=== PATIENT | female | born 1975 | race American Indian/Alaskan Native ===

== ENCOUNTER 2017-05-27 00:24 | Emergency (ER) | payer MEDICAID, OTHER ==
[2017-05-27 02:10] VITALS: BP 155/98
[2017-05-27] MEDS ORDERED: FLEXERIL PO ONE (04:52)
[2017-05-27] MEDS ORDERED: NORCO 7.5/325 PO ONE (04:52)
[2017-05-27] MEDS ORDERED: TORADOL IM ONE (04:52)
--- NOTE | 2017-05-27 05:39 | Emergency Department Report ---
ED Back Pain/Injury HPI - General Chief Complaint: Back Pain/Injury Stated Complaint: BACK PAIN Source: patient Mode of arrival: Ambulatory Limitations: No Limitations - History of Present Illness Initial Comments: 42 year old female presents to ED with lower back pain x2-3 weeks. patient states she has history of breast cancer. patient is ambulatory with normal gait. patient denies dysuria, hematuria, urinary incontince, , saddle anesthesia. patient is stable, neurologically intact and in no acute distress. MD Complaint: back pain -: Gradual, week(s) (2) Similar Symptoms Previously: No Radiation: none Severity: moderate Quality: sharp Consistency: constant Improves With: immobilization, medication Worsens With: movement Associated Symptoms: denies: confusion, weakness, chest pain, numbness, difficulty walking, cough, difficulty urinating, diaphoresis, incontinence, fever/chills, constipation, headaches, abdominal pain, loss of appetite, malaise , nausea/vomiting, rash, seizure, shortness of breath, syncope - Related Data Home Medications Medication Instructions Recorded Confirmed Last Taken Ergocalciferol(Vitamin D2)(Nf) 400 unit PO QWEEK 12/04/16 12/04/16 Unknown [Vitamin D (Nf)] Gabapentin [Gabapentin] 600 mg PO BID 12/04/16 12/04/16 Unknown NIFEdipine XL [Procardia Xl] 30 mg PO QDAY 12/04/16 12/04/16 Unknown Previous Rx's Medication Instructions Recorded Last Taken Type Meloxicam [Mobic] 7.5 mg PO QDAY #5 tablet 05/27/17 Unknown Rx methOCARBAMOL [Robaxin TAB] 500 mg PO TID #15 tab 05/27/17 Unknown Rx Allergies Allergy/AdvReac Type Severity Reaction Status Date / Time carboplatin Allergy Shortness Verified 12/04/16 11:19 of Breath ED Review of Systems ROS: Stated complaint: BACK PAIN Other details as noted in HPI Constitutional: denies: chills, fever Eyes: denies: eye pain, eye discharge, vision change ENT: denies: ear pain, throat pain Respiratory: denies: cough, shortness of breath, wheezing Cardiovascular: denies: chest pain, palpitations Endocrine: no symptoms reported Gastrointestinal: denies: abdominal pain, nausea, diarrhea Genitourinary: denies: urgency, dysuria, discharge Musculoskeletal: back pain. denies: joint swelling, arthralgia Skin: denies: rash, lesions Neurological: denies: headache, weakness, paresthesias Psychiatric: denies: anxiety, depression Hematological/Lymphatic: denies: easy bleeding, easy bruising ED Past Medical Hx - Past Medical History Hx Hypertension: Yes (since 2014) Hx GERD: Yes Hx of Cancer: Yes (BREAST) Hx Headaches / Migraines: Yes Hx Seizures: No Hx HIV: No - Surgical History Hx Breast Surgery: Yes (RIGHT BREAST BX 06-25-) Additional Surgical History: HERNIA REPAIR, RIGHT MASTECTOMY. Port to left mid chest - Social History Smoking Status: Never Smoker Substance Use Type: None - Medications Home Medications: Home Medications Medication Instructions Recorded Confirmed Last Taken Type Ergocalciferol(Vitamin D2)(Nf) 400 unit PO QWEEK 12/04/16 12/04/16 Unknown History [Vitamin D (Nf)] Gabapentin [Gabapentin] 600 mg PO BID 12/04/16 12/04/16 Unknown History NIFEdipine XL [Procardia Xl] 30 mg PO QDAY 12/04/16 12/04/16 Unknown History Meloxicam [Mobic] 7.5 mg PO QDAY #5 tablet 05/27/17 Unknown Rx methOCARBAMOL [Robaxin TAB] 500 mg PO TID #15 tab 05/27/17 Unknown Rx ED Physical Exam - General Limitations: No Limitations General appearance: alert, in no apparent distress - Head Head exam: Present: atraumatic, normocephalic - Eye Eye exam: Present: normal appearance - ENT ENT exam: Present: mucous membranes moist - Neck Neck exam: Present: normal inspection - Respiratory Respiratory exam: Present: normal lung sounds bilaterally. Absent: respiratory distress, wheezes, rales, rhonchi - Cardiovascular Cardiovascular Exam: Present: regular rate, normal rhythm. Absent: systolic murmur, diastolic murmur, rubs, gallop - GI/Abdominal GI/Abdominal exam: Present: soft, normal bowel sounds. Absent: distended, tenderness, guarding, rebound - Extremities Exam Extremities exam: Present: normal inspection, full ROM. Absent: tenderness - Back Exam Back exam: Present: normal inspection, full ROM, tenderness (moderate vertebral tenderness to palpation) - Neurological Exam Neurological exam: Present: alert, oriented X3, normal gait - Psychiatric Psychiatric exam: Present: normal affect, normal mood - Skin Skin exam: Present: warm, dry, intact, normal color. Absent: rash ED Course Vital Signs 05/27/17 05/27/17 05/27/17 00:26 03:56 05:51 Temperature 99.0 F 99 F Pulse Rate 99 H 99 H Respiratory 16 18 Rate Blood Pressure 155/98 Blood Pressure 155/98 [Left] O2 Sat by Pulse 100 100 Oximetry ED Medical Decision Making - Lab Data Labs 05/27/17 04:40 Urine Color Yellow Urine Turbidity Clear Urine pH 5.0 Ur Specific [place] 1.021 Urine Protein <15 mg/dl Urine Glucose (UA) Neg Urine Ketones Neg Urine Blood Neg Urine Nitrite Neg Urine Bilirubin Neg Urine Urobilinogen < 2.0 Ur Leukocyte Esterase Neg Urine WBC (Auto) 1.0 Urine RBC (Auto) 1.0 U Epithel Cells (Auto) 1.0 Hyaline Casts 1 Urine Mucus 1+ Urine HCG, Qual Negative - Radiology Data Radiology results: report reviewed CT lumbar Normal CT lumbar spine - Medical Decision Making 42 year old female presents to ED with lower back pain x2-3 weeks. patient denies injury. patient had moderate amount of tenderness to palpation of lower midline back prior to pain medication administered during ED visit. patient has decreased pain after medication and upon discharge. patient states she has history of breast cancer. patient is stable, neurologically intact and in no acute distress. patient is ambulatory with normal gait. patient is now resting comfortably in stretcher. Critical care attestation.: If time is entered above; I have spent that time in minutes in the direct care of this critically ill patient, excluding procedure time. ED Disposition Clinical Impression: Lower back pain Qualifiers: Chronicity: acute Back pain laterality: midline Sciatica presence: without sciatica Qualified Code(s): M54.5 - Low back pain Disposition: DC-01 TO HOME OR SELFCARE Is pt being admited?: No Does the pt Need Aspirin: No Condition: Stable Instructions: Acute Low Back Pain (ED) Prescriptions: Meloxicam [Mobic] 7.5 mg PO QDAY #5 tablet methOCARBAMOL [Robaxin TAB] 500 mg PO TID #15 tab Referrals: PRIMARY CARE, [Primary Care Provider] - 2-3 Days
[2017-05-27] MEDS ORDERED: TORADOL ONE (05:42)
[2017-05-27 05:54] LABS: Bilirubin,Urine NEG (Negative); Blood,Urine NEG (Negative); Ketones,Urine NEG (Negative); Leukocyte Esterase,Urine NEG (Negative); Mucus,Urine 1+ /HPF; Nitrite,Urine NEG (Negative); Protein,Urine <15 mg/dL mg/dL (Negative); Urobilinogen,Urine < 2.0 mg/dL (<2.0)
--- NOTE | 2017-05-27 06:59 | Cat Scan Report ---
FINAL REPORT PROCEDURE: CT LUMBAR SPINE WO CON TECHNIQUE: Computerized axial tomography of the lumbar spine was performed from T12 to the sacrum without contrast material. HISTORY: lower back pain, hx of cancer COMPARISON: No prior studies are available for comparison. FINDINGS: L1-2: No significant abnormality. L2-3: No significant abnormality. L3-4: No significant abnormality. L4-5: No significant abnormality. L5-S1: No significant abnormality. Other: The alignment is normal. The heights of the vertebral bodies and the disc spaces are maintained. No acute fracture or dislocation of the lumbar spine. The spinal canal is adequate at all levels.. IMPRESSION: Normal CT lumbar spine.
== END 2017-05-27 07:17 | disposition home or self-care (01) ==
LOC: ED 00:24
DX: M54.5 Low back pain (principal); I10 Essential (primary) hypertension; K21.9 Gastro-esophageal reflux disease without esophagitis; Z85.3 Personal history of malignant neoplasm of breast
CPT/HCPCS: 72131; 81001; 81025; 96372; 99284; J1885

== ENCOUNTER 2017-06-01 07:16 | Outpatient (CLI) | payer MEDICAID ==
--- NOTE | 2017-06-01 10:38 | Cat Scan Report ---
CT scan of head without and with IV contrast: History: Malignant neoplasm. Findings: Ventricles are normal in size and midline in location. No evidence of acute ischemia, hemorrhage or mass. No extra-axial fluid collection. The vessels of the [place] appear unremarkable. Normal brainstem and cerebellum. Normal sinuses and mastoid air cells. Impression: No acute intracranial abnormality.
== END 2017-06-01 07:17 | disposition home or self-care (01) ==
LOC: CT 07:16
PROVIDERS: ATTEND Internal Medicine Hematology & Oncology
DX: C50.411 Malignant neoplasm of upper-outer quadrant of right female breast (principal)
CPT/HCPCS: 70470; Q9967

== ENCOUNTER 2017-12-15 00:28 | Emergency (ER) | payer MEDICAID ==
--- NOTE | 2017-12-15 05:12 | Emergency Department Report ---
ED Back Pain/Injury HPI - General Chief Complaint: Back Pain/Injury Stated Complaint: LOWER BACK PAIN Time Seen by Provider: 12/15/17 05:11 Source: patient Limitations: No Limitations - History of Present Illness Initial Comments: 42-year-old -[place] female comes in complaining of lower back pain for 3 days. Patient reports she's been taking ibuprofen but does not help. Patient reports she had a similar issue 6 months ago and was given a Toradol injection and reported that had helped a lot. Patient has a past medical history of breast cancer, hypertension, lymphoma of the right arm. Patient is currently taken Procardia 30 mg and gabapentin 600 mg. Patient denies any recent trauma she says sitting makes her pain worse and lying on her left side improves pain. Patient reports she has left leg cramps that traveled up her back. MD Complaint: back pain -: month(s) (6) Similar Symptoms Previously: Yes Severity scale (0 -10): 8 Quality: sharp Consistency: constant Improves With: supine Worsens With: sitting upright Associated Symptoms: denies: numbness, difficulty urinating, incontinence, fever /chills - Related Data Home Medications Medication Instructions Recorded Confirmed Last Taken Ergocalciferol(Vitamin D2)(Nf) 400 unit PO QWEEK 12/04/16 12/04/16 Unknown [Vitamin D (Nf)] Gabapentin 600 mg PO BID 12/04/16 12/04/16 Unknown NIFEdipine XL [Procardia Xl] 30 mg PO QDAY 12/04/16 12/04/16 Unknown Previous Rx's Medication Instructions Recorded Last Taken Type Meloxicam [Mobic] 7.5 mg PO QDAY #5 tablet 05/27/17 Unknown Rx methOCARBAMOL [Robaxin TAB] 500 mg PO TID #15 tab 05/27/17 Unknown Rx Naproxen [EC-Naprosyn] 500 mg PO BID #20 tablet. 12/15/17 Unknown Rx predniSONE [Deltasone] 20 mg PO QDAY #5 tab 12/15/17 Unknown Rx Allergies Allergy/AdvReac Type Severity Reaction Status Date / Time carboplatin Allergy Shortness Verified 12/04/16 11:19 of Breath ED Review of Systems ROS: Stated complaint: LOWER BACK PAIN Other details as noted in HPI Constitutional: denies: chills, fever Eyes: denies: eye pain, eye discharge, vision change ENT: denies: ear pain, throat pain Respiratory: denies: cough, shortness of breath, wheezing Cardiovascular: denies: chest pain, palpitations Endocrine: no symptoms reported Gastrointestinal: denies: abdominal pain, nausea, diarrhea Genitourinary: denies: urgency, dysuria, discharge Musculoskeletal: back pain, other (right leg cramp that radiates up her back) Skin: denies: rash, lesions Neurological: denies: headache, weakness, paresthesias Psychiatric: denies: anxiety, depression Hematological/Lymphatic: denies: easy bleeding, easy bruising ED Past Medical Hx - Past Medical History Previous Medical History?: Yes Hx Hypertension: Yes (since 2014) Hx GERD: Yes Hx Headaches / Migraines: Yes Hx Seizures: No Hx HIV: No Additional medical history: back pain - Surgical History Past Surgical History?: Yes Hx Breast Surgery: Yes (RIGHT BREAST BX 06-25-) Additional Surgical History: HERNIA REPAIR, RIGHT MASTECTOMY. Port to left mid chest - Social History Smoking Status: Never Smoker Substance Use Type: None - Medications Home Medications: Home Medications Medication Instructions Recorded Confirmed Last Taken Type Ergocalciferol(Vitamin D2)(Nf) 400 unit PO QWEEK 12/04/16 12/04/16 Unknown History [Vitamin D (Nf)] Gabapentin 600 mg PO BID 12/04/16 12/04/16 Unknown History NIFEdipine XL [Procardia Xl] 30 mg PO QDAY 12/04/16 12/04/16 Unknown History Meloxicam [Mobic] 7.5 mg PO QDAY #5 tablet 05/27/17 Unknown Rx methOCARBAMOL [Robaxin TAB] 500 mg PO TID #15 tab 05/27/17 Unknown Rx Naproxen [EC-Naprosyn] 500 mg PO BID #20 tablet. 12/15/17 Unknown Rx predniSONE [Deltasone] 20 mg PO QDAY #5 tab 12/15/17 Unknown Rx ED Physical Exam - General Limitations: No Limitations General appearance: alert, in no apparent distress - Head Head exam: Present: atraumatic, normocephalic - Eye Eye exam: Present: normal appearance - ENT ENT exam: Present: mucous membranes moist - Respiratory Respiratory exam: Present: normal lung sounds bilaterally. Absent: respiratory distress - Cardiovascular Cardiovascular Exam: Present: regular rate, normal rhythm. Absent: systolic murmur, diastolic murmur, rubs, gallop - GI/Abdominal GI/Abdominal exam: Present: soft, normal bowel sounds - Extremities Exam Extremities exam: Present: normal inspection, full ROM. Absent: tenderness - Back Exam Back exam: Present: normal inspection, full ROM, paraspinal tenderness (lumbar sacral) - Neurological Exam Neurological exam: Present: alert, oriented X3 - Psychiatric Psychiatric exam: Present: normal affect, normal mood - Skin Skin exam: Present: warm, dry, intact, normal color. Absent: rash ED Course Vital Signs 12/15/17 12/15/17 12/15/17 01:30 05:24 05:25 Temperature 98.6 F Pulse Rate 103 H Respiratory 18 18 18 Rate Blood Pressure 141/100 Blood Pressure [Left] O2 Sat by Pulse 97 Oximetry 12/15/17 05:48 Temperature Pulse Rate 97 H Respiratory 18 Rate Blood Pressure Blood Pressure 139/96 [Left] O2 Sat by Pulse 97 Oximetry ED Medical Decision Making - Medical Decision Making Patient has been evaluated by this provider in fast track. I discussed the patient we will give her Toradol injection and then [place] for pain. Discussed the patient I will discharge her on a few steroids and ibuprofen. Patient verbalized understanding. Critical care attestation.: If time is entered above; I have spent that time in minutes in the direct care of this critically ill patient, excluding procedure time. ED Disposition Clinical Impression: Chronic back pain greater than 3 months duration Disposition: DC-01 TO HOME OR SELFCARE Is pt being admited?: No Does the pt Need Aspirin: No Condition: Stable Instructions: Chronic Back Pain (ED) Additional Instructions: Please take medication as prescribed. Please follow-up with your primary care provider if symptoms persist or gets worse. Prescriptions: Naproxen [EC-Naprosyn] 500 mg PO BID #20 tablet. predniSONE [Deltasone] 20 mg PO QDAY #5 tab Referrals: TONY SALCIDO MD [Primary Care Provider] - 3-5 Days your,provider [Other] - 3-5 Days
[2017-12-15] MEDS ORDERED: NORCO 7.5/325 PO ONE (05:21)
[2017-12-15] MEDS ORDERED: TORADOL IM ONE (05:21)
[2017-12-15 05:49] VITALS: BP 139/96
== END 2017-12-15 05:49 | disposition home or self-care (01) ==
LOC: ED 00:28
DX: M54.5 Low back pain (principal); G89.29 Other chronic pain; I10 Essential (primary) hypertension; K21.9 Gastro-esophageal reflux disease without esophagitis; G43.909 Migraine, unspecified, not intractable, without status migrainosus; Z90.11 Acquired absence of right breast and nipple; Z88.8 Allergy status to other drugs, medicaments and biological substances
CPT/HCPCS: 96372; 99282; J1885

== ENCOUNTER 2018-04-30 11:51 | Outpatient (CLI) | payer MEDICAID | END 2018-04-30 11:52 | disposition home or self-care (01) | LOC: LAB 11:51 | PROVIDERS: ATTEND Physician Assistant | DX: N64.52 Nipple discharge (principal); E11.9 Type 2 diabetes mellitus without complications; Z90.12 Acquired absence of left breast and nipple | CPT/HCPCS: 36415; 84146 ==

== ENCOUNTER 2018-05-07 13:48 | Outpatient (CLI) | payer MEDICAID ==
--- NOTE | 2018-05-07 15:10 | Ultrasound Report ---
LEFT DIGITAL DIAGNOSTIC MAMMOGRAM with CAD and LEFT BREAST ULTRASOUND: 05/07/18 13:48:00 CLINICAL: Milky right nipple discharge. COMPARISON:09/20/17 FINDINGS: There are scattered fibroglandular densities.No mass, architectural distortion or suspicious calcifications. A few small axillary lymph nodes. Ultrasound of the left breast (including all four quadrants and the retroareolar area) was performed and demonstrated mild retroareolar ductal ectasia with no intraductal masses. No mass, architectural distortion or suspicious calcifications. A few small left axillary lymph nodes of benign morphology. IMPRESSION: Mild benign duct ectasia no suspicious finding. BI-RADS CATEGORY: 2 - - Benign RECOMMENDATION: Routine mammographic screening. ACR BI-RADS MAMMOGRAPHIC CODES: 0 = Needs additional imaging evaluation; 1 = Negative; 2 = Benign; 3 = Probably benign; 4 = Suspicious; 5 = Malignant; 6 = Known biopsy-proven malignancy COMMENT: 1. Dense breast tissue, i.e., adenosis, fibrocystic changes, etc., may obscure an underlying neoplasm. 2. Approximately 10% of cancers are not detected with mammography. 3. A negative mammography report should not delay biopsy if a clinically suspicious mass is present. COMMENT: Patient follow-up letters are generated by our [employer] application.
== END 2018-05-07 13:49 | disposition home or self-care (01) ==
LOC: SPVWC 13:48
PROVIDERS: ATTEND Surgery
DX: N60.41 Mammary duct ectasia of right breast (principal); I10 Essential (primary) hypertension; K21.9 Gastro-esophageal reflux disease without esophagitis; E11.9 Type 2 diabetes mellitus without complications; Z90.12 Acquired absence of left breast and nipple

== ENCOUNTER 2018-08-20 06:09 | Day surgery (SDC) | payer MEDICAID ==
[~2018-08-20 06:09] MED LIST: ANCEF/STERILE WATER 2 GM/20 ML IV NR
[2018-08-20] MEDS ORDERED: SUBLIMAZE ONE (07:17)
[2018-08-20] MEDS ORDERED: DIPRIVAN 10 MG/ML IV ONE (07:18)
[2018-08-20] MEDS ORDERED: MARCAINE-EPI 0.25%-1:200,000 INFILTRATI ONE (07:19)
[2018-08-20] MEDS ORDERED: NACL 0.9% 1000 ML 1,000 ML ONE ×3 (07:20→09:09)
[2018-08-20] MEDS ORDERED: ADRENALIN ONE (07:20)
[2018-08-20] MEDS ORDERED: QUELICIN ONE (07:23)
[2018-08-20] MEDS ORDERED: XYLOCAINE MPF 2% ONE (07:23)
[2018-08-20] MEDS ORDERED: XYLOCAINE 0.5%/ EPI 1:200,000 INFILTRATI ONE (07:28)
[2018-08-20] MEDS ORDERED: VERSED ONE (07:29)
[2018-08-20] MEDS ORDERED: LACTATED RINGERS 1,000 ML ONE (07:29)
[2018-08-20] MEDS ORDERED: XYLOCAINE 1% 20 mL ONE ×2 (07:29→08:10)
[2018-08-20] MEDS ORDERED: NEURONTIN ONE (07:29)
[2018-08-20] MEDS ORDERED: BACITRACIN ONE ×2 (07:33→09:10)
[2018-08-20] MEDS ORDERED: DILAUDID IV PRN (07:54)
--- NOTE | 2018-08-20 07:54 | Anesthesia Day of Surgery ---
Anesthesia Day of Surgery - Day of Surgery Patient Examined: Yes Patient H&P Reviewed: Yes Patient is NPO: Yes
--- NOTE | 2018-08-20 07:54 | Anesthesia Consultation ---
Anesthesia Consult and Med Hx Date of service: 08/20/18 - Airway Anesthetic Teeth Evaluation: Partials ROM Head & Neck: Adequate Mental/Hyoid Distance: Adequate Mallampati Class: Class III Intubation Access Assessment: Possibly Difficult - Pulmonary Exam CTA: Yes - Cardiac Exam Cardiac Exam: RRR - Pre-Operative Health Status ASA Pre-Surgery Classification: ASA2 Proposed Anesthetic Plan: General - Pulmonary Hx Smoking: No Hx Asthma: No Hx Respiratory Symptoms: No Hx Sleep Apnea: No (JEANA PRE SCREEN LOW RISK.) - Cardiovascular System Hx Hypertension: Yes (2014- NO MEDS AT PRESENT) Hx Heart Attack/AMI: No - Central Nervous System Hx Neuromuscular Disorder: No Hx Seizures: No CVA: No Hx Back Pain: Yes (WITH PAIN AND WEAKNESS RT ARM) Hx Psychiatric Problems: No - Gastrointestinal Hx Gastroesophageal Reflux Disease: Yes (well controlled) - Endocrine Hx Renal Disease: No Hx Liver Disease: No Hx Insulin Dependent Diabetes: No Hx Non-Insulin Dependent Diabetes: No Hx Thyroid Disease: No - Hematic Hx Anemia: No - Other Systems Hx Alcohol Use: No Hx Substance Use: No Hx Cancer: Yes Hx Obesity: Yes - Additional Comments Anesthesia Medical History Comments: No hx anesthetic complications.
[2018-08-20] MEDS ORDERED: LACTATED RINGERS 1,000 ML IV SCH (08:00)
[2018-08-20] MEDS ORDERED: DILAUDID ONE (08:39)
[2018-08-20] MEDS ORDERED: DECADRON ONE (08:39)
[2018-08-20] MEDS ORDERED: ZOFRAN ONE (08:40)
[2018-08-20] MEDS ORDERED: NACL P/F VIAL (10 ML) 20 ML ONE (09:10)
--- NOTE | 2018-08-20 11:54 | Operative Report ---
Operative Report Operative Report: Operative Report Operative Report: Preoperative Diagnosis: Acquired absence of the right breast; marked asymmetry s/p right breast reconstruction with Latissimus dorsi flap and tissue voice instructor placement. Post Operative Diagnosis: Same Procedure: Right breast tissue voice instructor/implant exchange; Left breast reduction Surgeon: Dr. Matilde Torres Life Sciences Manager: Gerri Escobedo Specimens: Left breast tissue, excised, 440 grams EBL: 50cc Procedure: After review of pertinent history and physical exam findings the patient was brought into the operating room and placed supine on the OR table. After induction of adequate general endotracheal anesthesia the patient's chest was prepped and draped in the usual sterile surgical fashion. To begin, we performed the tissue voice instructor removal on the right breast. A 750cc [place] tissue voice instructor, intact, was removed from the right breast pocket. Extensive capsulotomy was performed in the well-formed capsule to accomodate the permanent implant. Once hemostasis was achieved, the pocket was irrigated thoroughly with triple antibiotic solution. Using a Barragan funnel, an 800 cc [place] silicone implant (SN [id number]) implant was introduced into the pocket without difficulty. We then began our 3-layered closure using 2-0 and 3-0 Monocryl, followed by Skin Affix glue. Turning our attention to the left breast, the sepulveda on the left breast were refreshed and measurements double checked and we reduced it as follows: A 9cm inferior pedicle was outlined and de- epithelialized save the nipple and areola complex, which was measured out using a 4.5cm diameter and left completely attached to the inferior pedicle. After this, following a Schafer pattern, skin incisions were made to elevate breast flaps superiorly and excise excess tissue on the medial and lateral aspect of the pedicle. Hemostasis was maintained with electrocautery. Saline solution was then used to irrigate the breast tissue and, satisfied with hemostasis and volume, we began to a 3-layered closure using 2-0 Monocryl and 3-0 Monoderm sutures. The same procedure was performed on the left side, with tissue re- arrangement and excision based on an inferior pedicle being performed to preserve the nipple areolar complex and as much breast tissue as possible for symmetry. A total of 446g was removed from the left breast. Once all incisions were closed, they were sealed with skin affix glue and dressed with telfa and tegaderm dressings. This was followed by placement of a surgical bra. The patient was then awakened from general anesthesia and transferred to PACU in stable condition. There were no complications. All sponge needle and ins trument counts were correct at the end of the case.
[2018-08-20] MEDS ORDERED: ROBAXIN PO PRN (11:56)
[2018-08-20] MEDS ORDERED: ZOFRAN IV PRN (11:56)
[2018-08-20 13:13] VITALS: BP 169/79
== END 2018-08-20 06:10 | disposition home or self-care (01) ==
LOC: OR 06:09
PROVIDERS: ATTEND Plastic Surgery
DX: N64.89 Other specified disorders of breast (principal); I10 Essential (primary) hypertension; K21.9 Gastro-esophageal reflux disease without esophagitis; E66.9 Obesity, unspecified; Z68.33 Body mass index [BMI] 33.0-33.9, adult; Z90.11 Acquired absence of right breast and nipple; Z79.899 Other long term (current) drug therapy; Z88.8 Allergy status to other drugs, medicaments and biological substances; Z85.3 Personal history of malignant neoplasm of breast; Z98.890 Other specified postprocedural states
CPT/HCPCS: 11970; 19318; 81025; 88305; A4306; C1789; J0171; J0330; J0690; J1100; J1170; J2250; J2405; J2704; J3010; J7030; J7120

== ENCOUNTER 2019-02-06 09:41 | Outpatient (CLI) | payer MEDICAID ==
--- NOTE | 2019-02-10 11:23 | PET Report ---
PET/CT:02/06/19 09:41:00 CLINICAL: Breast cancer restaging. RADIOPHARMACEUTICAL: 15.46mCi F18-FDG. COMPARISON: None. TECHNIQUE- Following intravenous injection of F-18 FDG and an approximately 60 minute uptake period, CT and PET images from the mid skull to the upper thighs were acquired with the patient in the fasted state. No contrast was administered. The CT protocol used for this PET CT study is designed for attenuation correction and anatomic localization of PET abnormalities. This forklift mechanic CT is not desired to produce and cannot replace, [id number]-[id number]-art diagnostic CT scans with specific imaging protocols for different body parts and indications. Plasma glucose at the time of this test: 93g/dl. The standardized uptake values (SUV) are normalized to patient body weight and indicate the highest activity concentration (SUV max) in a given disease site. FINDINGS: Brain--Physiologic FDG uptake in the visualized regions of the brain. Neck--Physiologic FDG uptake in mucosal structures. No mass or lymphadenopathy. FDG avid focal uptake in the right thyroid lobe with SUV 5.0. No distinct nodule is identified by CT. Chest--Physiologic FDG uptake in mediastinal blood pool and myocardium. Status post right mastectomy with implant reconstruction. Lungs--No abnormal uptake. No pulmonary nodule or mass. Pleura/pericardium--No abnormal uptake. Thoracic nodes--No abnormal uptake. No lymphadenopathy. Hepatobiliary--No abnormal uptake. Liver background SUV mean, as a reference for comparing FDG studies, is 4.1 . No liver mass. Spleen--No abnormal uptake. Pancreas--No abnormal uptake. Adrenal Glands--No abnormal uptake. Kidneys/Ureters/Bladder--No abnormal uptake. Abdominopelvic Nodes--No abnormal uptake. Bowel/Peritoneum/Mesentery--No abnormal uptake. Pelvic organs--No abnormal uptake. Bones/Soft Tissues--No abnormal uptake and no suspicious bone lesions. IMPRESSION- No evidence of disease recurrence or metastasis. Probably benign right thyroid uptake. Consider right thyroid ultrasound to evaluate for nodule.
== END 2019-02-06 09:42 | disposition home or self-care (01) ==
LOC: PET 09:41
PROVIDERS: ATTEND Internal Medicine Hematology & Oncology
DX: C50.411 Malignant neoplasm of upper-outer quadrant of right female breast (principal); I89.0 Lymphedema, not elsewhere classified
CPT/HCPCS: 78815; 82962; A9552

== ENCOUNTER 2019-04-14 15:07 | Outpatient (CLI) | payer MEDICAID ==
--- NOTE | 2019-04-15 09:55 | Ultrasound Report ---
ULTRASOUND THYROID INDICATION / CLINICAL INFORMATION: I89.0 LYMPHEDEMA,NOT ELSEWHERE CLASSIFIED/ABNORMAL RT.THYROID UPT. COMPARISON: None available. FINDINGS: RIGHT LOBE: Size = 5.1 x 1.1 x 1.4 cm. - Echogenicity: Normal. - Vascularity: Normal. - Nodules < 1 cm: There are 2 subcentimeter nodules in the mid right thyroid lobe. A 7 mm hypoechoic nodule with a well-defined border and single echogenic focus is noted. An adjacent 6 mm isoechoic nod ule with a well-defined border is also noted. - Nodules >= 1 cm or Suspicious Nodules: None. LEFT LOBE: Size = 5.1 x 1.4 x 1.4 cm. - Echogenicity: Normal. - Vascularity: Normal. - Nodules < 1 cm: A solitary 4 x 9 mm mixed echogenic nodule with well-defined border is identified n ear the inferior pole. - Nodules >= 1 cm or Suspicious Nodules: None. ISTHMUS: No significant abnormality. Thickness = 0.3 cm. - Nodules < 1 cm: None. - Nodules >= 1 cm or Suspicious Nodules: None. LYMPH NODES: No abnormal lymph nodes. PARATHYROID GLANDS: No abnormal parathyroid gland. ADDITIONAL FINDINGS: None. IMPRESSION: Bilateral thyroid nodules as described. Note: Nodule size based on mean (average) size of 3 dimensions. Note: Nodules < 1 cm do not typically require follow-up or FNA unless there are suspicious features ( DAVIAN, 2015) ACR TI-RADS Thyroid Nodule Recommendations TI-RADS 1 (0 points) -- Benign. No FNA or follow-up. TI-RADS 2 (1-2 points) -- Not suspicious. No FNA or follow-up. TI-RADS 3 (3 points) -- Mildly suspicious. Follow up in 1 year if 1.5 cm. FNA if 2.5 cm. TI-RADS 4 (4-6 points) -- Moderately suspicious. Follow up in 1 year if 1.0 cm. FNA if 1.5 cm. TI-RADS 5 (7+ points) -- Highly suspicious. Follow up in 1 year if 0.5 cm. FNA if 1.0 cm. Signer Name: Venkata Ross Jr, MD Signed: 04/15/2019 9:51 AM Workstation Name: [id number]
== END 2019-04-14 15:08 | disposition home or self-care (01) ==
LOC: US 15:07
PROVIDERS: ATTEND Internal Medicine Hematology & Oncology
DX: E04.2 Nontoxic multinodular goiter (principal); I89.0 Lymphedema, not elsewhere classified; C50.411 Malignant neoplasm of upper-outer quadrant of right female breast; K21.9 Gastro-esophageal reflux disease without esophagitis; E66.9 Obesity, unspecified
CPT/HCPCS: 76536

== ENCOUNTER 2019-05-05 10:47 | Day surgery (SDC) | payer MEDICAID ==
[2019-05-05] MEDS ORDERED: NACL P/F VIAL (10 ML) 20 ML ONE (10:52)
[2019-05-05] MEDS ORDERED: BACITRACIN ONE (10:53)
[2019-05-05] MEDS ORDERED: GENTAMICIN ONE (10:53)
[2019-05-05] MEDS ORDERED: ANCEF ONE (10:53)
[2019-05-05] MEDS ORDERED: XYLOCAINE 1% 20 mL ONE (10:54)
[2019-05-05] MEDS ORDERED: XYLOCAINE 1%/ EPI 1:100,000 INFILTRATI ONE ×2 (10:56→14:20)
[2019-05-05] MEDS ORDERED: ADRENALINE P/F ONE (10:56)
[2019-05-05] MEDS ORDERED: NACL 0.9% 1000 ML 1,000 ML ONE (11:58)
[2019-05-05] MEDS ORDERED: TYLENOL PO ONE (12:15)
[2019-05-05] MEDS ORDERED: ZOFRAN IV PRN (12:15)
[2019-05-05] MEDS ORDERED: SUBLIMAZE IV PRN (12:15)
[2019-05-05] MEDS ORDERED: DILAUDID IV PRN (12:15)
--- NOTE | 2019-05-05 12:16 | Anesthesia Day of Surgery ---
Anesthesia Day of Surgery - Day of Surgery Patient Examined: Yes Patient H&P Reviewed: Yes Patient is NPO: Yes
--- NOTE | 2019-05-05 12:19 | Anesthesia Consultation ---
Anesthesia Consult and Med Hx Date of service: 05/05/19 - Airway Anesthetic Teeth Evaluation: Good, Dentures ROM Head & Neck: Adequate Mental/Hyoid Distance: Adequate Mallampati Class: Class II Intubation Access Assessment: Good - Pre-Operative Health Status ASA Pre-Surgery Classification: ASA2 Proposed Anesthetic Plan: General - Pulmonary Hx Smoking: No Hx Asthma: No Hx Respiratory Symptoms: No Hx Sleep Apnea: No (JEANA PRE SCREEN LOW RISK.) - Cardiovascular System Hx Hypertension: Yes (Since 2014) Hx Heart Attack/AMI: No - Central Nervous System Hx Neuromuscular Disorder: No Hx Seizures: No CVA: No Hx Back Pain: Yes (WITH PAIN AND WEAKNESS RT ARM) Hx Psychiatric Problems: No - Gastrointestinal Hx Gastroesophageal Reflux Disease: Yes (well controlled) - Endocrine Hx Renal Disease: No Hx Liver Disease: No Hx Insulin Dependent Diabetes: No Hx Non-Insulin Dependent Diabetes: No Hx Thyroid Disease: No - Hematic Hx Anemia: No Hx Sickle Cell Disease: No - Other Systems Hx Alcohol Use: No Hx Substance Use: No Hx Cancer: Yes Hx Obesity: Yes
[2019-05-05] MEDS ORDERED: ZOFRAN ONE (12:27)
[2019-05-05] MEDS ORDERED: XYLOCAINE MPF 2% ONE (12:27)
[2019-05-05] MEDS ORDERED: ZEMURON IV ONE ×2 (12:27→14:08)
[2019-05-05] MEDS ORDERED: DECADRON ONE (12:27)
[2019-05-05] MEDS ORDERED: DIPRIVAN 10 MG/ML IV ONE (12:27)
[2019-05-05] MEDS ORDERED: SUBLIMAZE ONE ×2 (12:27→14:51)
[2019-05-05] MEDS ORDERED: NEURONTIN PO NR (13:00)
[2019-05-05] MEDS ORDERED: LACTATED RINGERS 1,000 ML IV SCH (13:00)
[2019-05-05] MEDS ORDERED: ANCEF/STERILE WATER 2 GM/20 ML IV NR (13:30)
[2019-05-05] MEDS ORDERED: PHENYLEPHRINE/NS Syringe 1,000 MCG/10 ML IV ONE (14:08)
[2019-05-05] MEDS ORDERED: NACL 0.9% 1000 ML IR ONE (14:18)
[2019-05-05] MEDS ORDERED: ADRENALINE P/F IV ONE (14:19)
[2019-05-05] MEDS ORDERED: XYLOCAINE 1% 20 mL INFILTRATI ONE (14:20)
[2019-05-05] MEDS ORDERED: NACL P/F VIAL (10 ML) IV ONE (14:21)
[2019-05-05] MEDS ORDERED: BACITRACIN IR ONE (14:22)
[2019-05-05] MEDS ORDERED: ANCEF IV ONE (14:24)
[2019-05-05] MEDS ORDERED: GENTAMICIN IV ONE (14:25)
[2019-05-05] MEDS ORDERED: NACL 0.9% IR ONE (14:26)
[2019-05-05] MEDS ORDERED: BLOXIVERZ ONE (15:31)
[2019-05-05] MEDS ORDERED: ROBINUL ONE (15:31)
--- NOTE | 2019-05-05 16:14 | Operative Report ---
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 Matilde Torres Consultant: None Procedure: Right breast implant exchange (downsize), left breast fat grafting. Anesthesia: General Specimens: None Indications: This patient is a 44 year old female with history of right breast cancer who underwent right breast reconstruction with latissimus flap and eventual placement of a permanent silicone prosthesis. Her last surgery was a left breast reduction and lift for symmetry. She receovered without incident from that but was dissatisfied with the asymmetric projection of the implanted/reconstructed breast as compared to the natural breast. We reviewed her options and determine that the best way moving forward would be to perform fat grafting to the left breast and downsize the right breast implant. She was informed that perfect symmetry with an implant breast and a natural breast would never be possible. However, with fat grafting we would be able to get a closer match. Patient understood and accepted the goals of this procedure as well as the benefits and risks. Informed consent was obtained. Procedure: Review of pertinent history and physical exam findings patient was brought to the operating room and placed supine on the OR table. After induction of adequate general endotracheal anesthesia, the patient was placed in the prone position appropriately padded and prepped and draped in the usual sterile surgical fashion. To begin, 1 L of tumescent solution was infiltrated into the areas of the upper back where asymmetry and deformity were created by the removal of latissimus muscle and its overlying skin paddle to reconstruct the right breast. Suction-assisted lipectomy was performed until adequate volume for grafting was harvested. The patient was then turned to the supine position and we began the implant exchange portion of the procedure. 1% lidocaine with epinephrine was infiltrated into the incision site which was opened using a 10 blade followed by electrocautery. The implant capsule was opened and the existing 800 mL smooth round moderate plus profile silicone [place] implant was removed and noted to be intact. The capsule was examined and noted to be soft and pliable. Superiorly, the capsule was thoroughly scored to encourage closure at the superior most aspect of the implant pocket. Next, the implant pocket was irrigated with triple antibiotic solution and this was followed by placement of a smooth round high profile Wood[place]ine silicone implant, 600 mL using a Barragan funnel. The incision was then closed in 3 layers using 2- 0 Monocryl followed by 2 layers of 3-0 Monocryl dermal quill suture. Next turning our attention to the left breast, the fat grafting portion of the procedure: Cannula insertion sites were infiltrated with 1% Lidocaine with epinephrine. Using a 60 mL syringe, fat was micro-grafted into the tissue of the left breast, particularly augmenting the superior portion to better mimic the implanted side. A total of 240 mL was infiltrated. Cannula insertion sites were then closed with 4-0 Monocryl. All incisions were sealed with Dermabond. Patient was then awakened from anesthesia without difficulty. The patient was then placed in a bra binder and transferred to the stretcher whereupon she was transferred to recovery in stable condition. There were no complications. All sponge needle and instrument counts were correct at the end of the case.
--- NOTE | 2019-05-05 17:56 | Post Anesthesia Evaluation ---
- Post Anesthesia Evaluation Patient Participated: Yes Airway Patent: Yes Stable Respiratory Function: Yes Nausea/Vomiting: No Temp > 96.8F: Yes Pain Manageable: Yes Adequeate Hydration: Yes Anesthesia Complications: No Block Receding Appropriately: Not Applicable Patient on Ventilator: No
[2019-05-05 19:01] VITALS: BP 141/68
== END 2019-05-05 10:48 | disposition home or self-care (01) ==
LOC: OR 10:47
PROVIDERS: ATTEND Plastic Surgery
DX: N64.89 Other specified disorders of breast (principal); C50.911 Malignant neoplasm of unspecified site of right female breast; I10 Essential (primary) hypertension; K21.9 Gastro-esophageal reflux disease without esophagitis; E66.9 Obesity, unspecified; Z85.3 Personal history of malignant neoplasm of breast; Z68.31 Body mass index [BMI] 31.0-31.9, adult; Z98.890 Other specified postprocedural states; Z79.899 Other long term (current) drug therapy; Z90.11 Acquired absence of right breast and nipple; Z88.8 Allergy status to other drugs, medicaments and biological substances
CPT/HCPCS: 19340; 19380; 20926; 81025; C1789; J0171; J0690; J1100; J1170; J1580; J2370; J2405; J2704; J2710; J3010; J7030; J7120

== ENCOUNTER 2019-05-15 10:12 | Outpatient (CLI) | payer MEDICAID ==
[2019-05-15 12:24] LABS: Chol/HDL Ratio 3.27 %
[2019-05-18 12:43] LABS: Vitamin D, 25-OH, D2 5 ng/mL
== END 2019-05-15 10:13 | disposition home or self-care (01) ==
LOC: LAB 10:12
PROVIDERS: ATTEND Internal Medicine
DX: Z13.21 Encounter for screening for nutritional disorder (principal); Z13.220 Encounter for screening for lipoid disorders; R73.09 Other abnormal glucose; I10 Essential (primary) hypertension; K21.9 Gastro-esophageal reflux disease without esophagitis
CPT/HCPCS: 36415; 80061; 82306; 82607; 83036

== ENCOUNTER 2019-07-09 07:51 | Day surgery (SDC) | payer MEDICAID ==
[~2019-07-09 07:51] MED LIST changes: -ANCEF/STERILE WATER 2 GM/20 ML IV NR; +CELECOXIB 200 MG CAP PO NR; +GABAPENTIN 300 MG CAP PO NR; +LACTATED RINGERS 1,000 ML IV SCH; +MIDAZOLAM 2 MG/2 ML INJ IV NR; +ceFAZolin/Water 2 GM/20 ML 2 GM/20 ML SYRINGE IV NR
[2019-07-09] MEDS ORDERED: BACTERIOSTATIC SODIUM CHLORIDE 0.9% 30 ML VIAL INFILTRATI ONE (07:55)
[2019-07-09] MEDS ORDERED: EPINEPHrine/PF (1:1,000) 1 MG/1 ML INJ ONE (07:58)
[2019-07-09] MEDS ORDERED: LIDOCAINE 1%/EPINEPHRINE 1:100,000 VIAL (20 ML) INFILTRATI ONE ×2 (07:58→10:09)
[2019-07-09] MEDS ORDERED: LIDOCAINE (1%) 10 MG/1 ML VIAL 20 ML MDV ONE (07:58)
[2019-07-09] MEDS ORDERED: SODIUM CHLORIDE 0.9% 1000 ML 1,000 ML ONE (07:58)
--- NOTE | 2019-07-09 08:18 | Anesthesia Consultation ---
Anesthesia Consult and Med Hx Date of service: 07/09/19 - Airway Anesthetic Teeth Evaluation: Partials ROM Head & Neck: Adequate Mental/Hyoid Distance: Adequate Mallampati Class: Class II Intubation Access Assessment: Probably Good - Pulmonary Exam CTA: Yes - Cardiac Exam Cardiac Exam: RRR - Pre-Operative Health Status ASA Pre-Surgery Classification: ASA2 Proposed Anesthetic Plan: General - Pulmonary Hx Smoking: No Hx Respiratory Symptoms: No - Cardiovascular System Hx Hypertension: Yes (took nifedipine this morning) Hx Heart Attack/AMI: No - Central Nervous System Hx Back Pain: Yes - Gastrointestinal Hx Gastroesophageal Reflux Disease: Yes (well controlled) - Endocrine Hx Renal Disease: No Hx Liver Disease: No Hx Insulin Dependent Diabetes: No Hx Non-Insulin Dependent Diabetes: No Hx Thyroid Disease: No - Other Systems Hx Obesity: Yes (BMI 31) - Additional Comments Anesthesia Medical History Comments: No hx anesthetic complications. Hx LUE lymphedema.
--- NOTE | 2019-07-09 08:19 | Anesthesia Day of Surgery ---
Anesthesia Day of Surgery - Day of Surgery Patient Examined: Yes Patient H&P Reviewed: Yes Patient is NPO: Yes
[2019-07-09] MEDS ORDERED: PROPOFOL 200 MG/20 ML VIAL IV ONE (08:35)
[2019-07-09] MEDS ORDERED: fentaNYL 100 MCG/2 ML INJ ONE (08:35)
[2019-07-09] MEDS ORDERED: LIDOCAINE MPF (2%) 20 MG/1 ML VIAL 5 ML ONE (08:36)
[2019-07-09] MEDS ORDERED: dexAMETHasone 20 MG/5 ML VIAL ONE (09:32)
[2019-07-09] MEDS ORDERED: ONDANSETRON 4 MG/2 ML INJ ONE (09:32)
[2019-07-09] MEDS ORDERED: HYDROmorphone 1 MG/1 ML INJ ONE (10:00)
[2019-07-09] MEDS ORDERED: SODIUM CHLORIDE 0.9% 1000 ML IV SOLN IR ONE (10:07)
[2019-07-09] MEDS ORDERED: LIDOCAINE (1%) 10 MG/1 ML VIAL 20 ML MDV INFILTRATI ONE (10:08)
[2019-07-09] MEDS ORDERED: SODIUM CHLORIDE 0.9% IRR 1,500 ML BOTTLE IR ONE (10:10)
[2019-07-09] MEDS ORDERED: NEOMY 3.5 MG/BACIT 400 UNITS/POLY B 5000 UNITS OINT 15 GM TP ONE ×2 (11:58)
[2019-07-09] MEDS: HYDROmorphone 1 MG/1 ML INJ IV PRN ×2 (12:33→12:44)
[2019-07-09 13:17] VITALS: BP 134/89
--- NOTE | 2019-07-16 08:19 | Operative Report ---
Operative Report Operative Report: Plastic Surgery Operative Note Preoperative Diagnosis: Acquired absence of the right breast and nipple with r adiation now s/p right breast reconstruction with Latissimus dorsi flap and silicone implant. Postoperative Diagnosis: Same Procedure: Right breast nipple reconstruction, left breast fat grafting Surgeon: Dr. Matilde Torres Front End Web Developer: None Anesthesia: General Specimens: None EBL: Minimal Indications: This patient is a 44 year old female with a history of right breast cancer. She underwent a reconstruction with a Latissimus flap and silicone implant and has since also had symmetry procedures on her left breast. She is now ready for a nipple reconstruction and would like additional fat grafting to the left breast to make it more even in the superior pole with the right reconstructed breast. Procedure: After review of pertinent history and physical exam findings the bilateral breasts and abdomen were prepped and draped in the usual sterile surgical fashion. To begin, tumescent power assisted liposuction was performed on the upper abdomen to harvest fat to graft. After injecting cannula sites with 1% lidocaine with epinephrine, they were opened with a No. 11 blade. One liter of tumescent solution was infiltrated into the subcutaneous tissues of the abdomen. Adequate time was allowed for the onset of epinephrine effect and power assisted liposuction was performed until enough fat was collected for grafting. This fat was then allowed to settle out from fluid by gravity and we turned our attention to the right nipple reconstruction. The latissimus dorsi flap skin paddle was marked for a nipple diameter tomatch the contralateral side. A classic C-V flap design was marked and elevated using a No. 15 blade and electrocautery. Once elevated on all sides, we began our closure in 2 layers using 3-0 and 4-0 Monocryl followed by 4-0 Nylon sutures for the donor sites as well as the reconstructed nipple itself. The nipple was then covered in triple antibiotic ointment. Next, using blunt cannulas 360cc of pure fat was grafting into the tissues of the left breast, particularly in the upper pole, to mimic the superior fullness of the implant reconstruction. Satisfied with the symmetry, all remaining incisions were closed with 4-0 Monocryl and the patient was placed in an abdominal binder and a tented xeroform/gauze dressing was placed on the right nipple for protection. The pateint was then awakened from anesthesia and transferred to recovery room in stable condition. There were no complications. All sponge, needle and instrument counts were correct at the end of the case.
== END 2019-07-09 13:50 | disposition home or self-care (01) ==
LOC: OR 07:51
PROVIDERS: ATTEND Plastic Surgery
DX: Z45.811 Encounter for adjustment or removal of right breast implant (principal); I10 Essential (primary) hypertension; K21.9 Gastro-esophageal reflux disease without esophagitis; E66.9 Obesity, unspecified; Z68.31 Body mass index [BMI] 31.0-31.9, adult; Z85.3 Personal history of malignant neoplasm of breast; Z98.890 Other specified postprocedural states; Z79.899 Other long term (current) drug therapy; Z90.11 Acquired absence of right breast and nipple; Z91.81 History of falling; Z88.8 Allergy status to other drugs, medicaments and biological substances
CPT/HCPCS: 15877; 19350; 20926; 81025; J0171; J0690; J1100; J1170; J2250; J2405; J2704; J3010; J7030; J7120; A6250

== ENCOUNTER 2019-11-13 14:25 | Outpatient (CLI) | payer MEDICAID ==
--- NOTE | 2019-11-17 12:01 | Magnetic Resonance Report ---
BILATERAL BREAST MR WITHOUT AND WITH GADOLINIUM INDICATION: History of right breast cancer status post right mastectomy in 2016. COMPARISONS: 10/09/2019 left mammogram. No comparison imaging of the right breast. TECHNIQUE: Axial 1.0 mm T1 without, axial high-resolution 2.0 mm T2 and axial 1.0 mm dynamic vibrant high-resolution postcontrast T1 fat saturation sequences on a 1.5 Evelia magnet. The examination was p erformed with an 8-channel dedicated [place] breast coil. Post-processing with CAD and subtraction was performed on an Brammo workstation. 16.0 cc of MultiHance was injected without incident for the c ontrast portion of the exam. Consent was obtained prior to the administration of the contrast. FINDINGS: RIGHT BREAST: Status post right mastectomy with implant reconstruction. Focal skin thickening and an irregular mass contiguous to the skin at 3:00 about midway between the chest wall and the breast moun d. It measures approximately 14.3 x 10.5 x 5.6 mm with rapid initial enhancement and 100% type I pers istent waveform. No other mass or suspicious enhancement. No suspicious lymph nodes. Intact breast im plant. LEFT BREAST: Mild background parenchymal enhancement. Too numerous to count benign oil cysts througho ut the breast. The largest is in the upper outer quadrant in the midpoint of the breast and measures approximately 1.3 cm. Focal non mass enhancement in the upper outer breast approximately 10 cm from t he nipple measures approximately 1.6 x 1.1 x 1.3 cm. A portion of this enhancement may be a lymph nod e with benign morphology and central fat measuring 8 x 6 x 13 mm. No suspicious lymph nodes identifie d. IMPRESSION: 1. A probably benign lesion associated with the skin of the right breast at 3:00. Recommend further e valuation with targeted right breast ultrasound. 2. Extensive benign fat necrosis throughout the left breast with too numerous to count benign oil cys ts. Focal non mass enhancement in the upper outer quadrant is most likely related to benign fat necro sis. However, recommend targeted left breast ultrasound to evaluate this lesion at 2:00 10 cmfn. BI-RADS Category 0: Needs additional imaging Signer Name: Mekhi Willingham MD Signed: 11/17/2019 11:57 AM Workstation Name: [id number]
== END 2019-11-13 14:26 | disposition home or self-care (01) ==
LOC: SPVIMAG 14:25
PROVIDERS: ATTEND Surgery
DX: N64.59 Other signs and symptoms in breast (principal); R23.4 Changes in skin texture; Z85.3 Personal history of malignant neoplasm of breast
CPT/HCPCS: A9577; C8908; 77049

== ENCOUNTER 2019-11-25 11:59 | Outpatient (CLI) | payer MEDICAID ==
--- NOTE | 2019-11-25 13:54 | Ultrasound Report ---
LIMITED BILATERAL BREAST ULTRASOUND HISTORY: History of right breast cancer status post right mastectomy in 2016. The studies are done to evaluate abnormalities identified on a recent MRI. COMPARISON: 11/13/2019 MRI FINDINGS: Focused sonographic evaluation upon the 3:00 location of the right breast demonstrates no d istinct abnormality to correlate with the subcutaneous mass identified on MRI.. Focused sonographic evaluation upon the 2:00 location of the left breast demonstrates an oval solid h ypoechoic slightly irregular mass at 2:00 9 cm from the nipple. It measures 8 x 6 x 4 mm. Although it measures smaller by ultrasound, it correlates with the MRI lesion. In addition, a benign oil cysts w ith internal echoes are identified at 2:00 9 cm from the nipple measuring 7 x 5 x 7 mm and 4 x 2 x 4 mm. IMPRESSION: 1. Negative right breast. The MRI lesion is consistent with benign scar. 2. An 8 mm left breast mass at 2:00 9 cm from the nipple. Although it measures slightly smaller by ul trasound, it correlates with the MRI lesion. Recommend ultrasound-guided needle biopsy. 3. Benign oil cysts at 2:00 9 cm from the nipple left breast. Recommendation: Biopsy BIRADS 4: Suspicious abnormality. Signer Name: Mekhi Willingham MD Signed: 11/25/2019 1:49 PM Workstation Name: [id number]
== END 2019-11-25 12:00 | disposition home or self-care (01) ==
LOC: SPVWC 11:59
PROVIDERS: ATTEND Surgery
DX: N60.02 Solitary cyst of left breast (principal); N63.21 Unspecified lump in the left breast, upper outer quadrant

== ENCOUNTER 2019-12-10 13:50 | Outpatient (CLI) | payer MEDICAID ==
--- NOTE | 2019-12-10 15:27 | Mammography Report ---
DIGITAL DIAGNOSTIC MAMMOGRAM WITH CAD, 12/10/2019 INDICATION: Immediately status post ultrasound-guided needle biopsy -Post clip Lt TECHNIQUE: Digital left mammographic imaging was performed. This examination was interpreted with the benefit of Computer-aided Detection analysis. COMPARISON: 10/09/2019 FINDINGS: Breast Density: The breast is heterogeneously dense, which may obscure small masses. An outer biopsy clip correlates with the site of today's ultrasound-guided biopsy. IMPRESSION: Concordant clip deployment. Follow up recommendation: No recall. Post biopsy imaging. A "normal" or negative report should not discourage follow up or biopsy of a clinically significant f inding. A written summary of these findings will be mailed to the patient. The patient will be entered into a mammography reporting system which will generate a reminder letter for the patient's next appointmen t at the appropriate interval. According to the [employer], yearly mammograms are recommended starting at age 40 and continuing as long as a woman is in good health. Breast MRI is recommended for women with an ilya roximately 20-25% or greater lifetime risk of breast cancer, including women with a strong family his tory of breast or ovarian cancer and women who have been treated for Hodgkin's disease. Signer Name: Mekhi Willingham MD Signed: 12/10/2019 3:23 PM Workstation Name: [id number]
--- NOTE | 2019-12-10 15:34 | Ultrasound Report ---
ULTRASOUND-GUIDED NEEDLE CORE BIOPSY LEFT BREAST WITH CLIP PLACEMENT CLINICAL: History of reduction mammoplasty and numerous oil cysts. A suspicious mass by ultrasound at 2:00 9 cm from the nipple. FINDINGS: The procedure was explained to the patient and informed consent was obtained. Ultrasound demonstrated the previously identified mass. In addition, a second similar slightly smalle r lesion was identified more anterior near the skin surface at the 2:00 9 cm from the nipple position .. I marked the breast with a felt tip marker and a timeout was called. The skin was prepped with Chloro -Prep and anesthetized with 1% lidocaine. Needle core biopsy was performed through small dermatotomy using ultrasound guidance, 2% lidocaine wi th epinephrine for deep anesthesia and a 14-gauge Achieve biopsy device. A single pass was made throu gh each lesion and both lesions showed complete collapse with sampling. 2 cores were obtained and haroon lindy in formalin. A clip was deployed within one of the lesions. The patient tolerated the procedure well and there were no apparent complications. Hemostasis was ach ieved with minimal effort and a sterile dressing was applied. A post procedure mammogram demonstrated concordant clip deployment. She left the department in good c ondition and was given instructions for wound care and follow-up. IMPRESSION: Uncomplicated ultrasound guided needle core biopsy with clip placement left breast. 2 les ions identified at 2:00 9 cm from the nipple showed complete collapse with sampling and this is consi stent with benign oil cysts. Signer Name: Mekhi Willingham MD Signed: 12/10/2019 3:30 PM Workstation Name: [id number]
== END 2019-12-10 13:51 | disposition home or self-care (01) ==
LOC: SPVWC 13:50
PROVIDERS: ATTEND Surgery
DX: N63.21 Unspecified lump in the left breast, upper outer quadrant (principal); N61.0 Mastitis without abscess; R92.8 Other abnormal and inconclusive findings on diagnostic imaging of breast; I10 Essential (primary) hypertension; K21.9 Gastro-esophageal reflux disease without esophagitis; E66.9 Obesity, unspecified; Z98.890 Other specified postprocedural states; Z68.31 Body mass index [BMI] 31.0-31.9, adult; Z85.3 Personal history of malignant neoplasm of breast; Z88.8 Allergy status to other drugs, medicaments and biological substances; Z79.899 Other long term (current) drug therapy; Z90.11 Acquired absence of right breast and nipple
CPT/HCPCS: 88305

== ENCOUNTER 2020-10-27 14:51 | Outpatient (CLI) | payer MEDICAID ==
--- NOTE | 2020-10-28 08:40 | Mammography Report ---
DIGITAL SCREENING MAMMOGRAM WITH TOMOSYNTHESIS WITH CAD, 10/28/2020 CLINICAL INFORMATION / INDICATION: Routine Screening Mammography. Personal history of right breast ca ncer, right mastectomy TECHNIQUE: Digital bilateral 2D and 3D mammography with tomosynthesis was obtained in the craniocaud al and mediolateral oblique projections. Computer-Aided Detection (CAD) analysis was used for interp retation of this study. COMPARISON: 10/09/2019, 05/07/2018 FINDINGS: Breast Density: There are scattered areas of fibroglandular density. There is possible developing architectural distortion in the 2 to 3:00 position of the left breast in the middle depth. This is a new finding. IMPRESSION: Further evaluation of possible architectural distortion in the left is required. Follow up recommendation: Special View: Spot BI-RADS Category 0: Incomplete. Needs additional imaging evaluation and/or prior mammograms for vipul rison. A "normal" or negative report should not discourage follow up or biopsy of a clinically significant f inding. A written summary of these findings will be mailed to the patient. The patient will be entered into a mammography reporting system which will generate a reminder letter for the patient's next appointmen t at the appropriate interval. The [employer] recommends yearly mammograms starting at age 40 and continuing as l vivek as a woman is in good health. Breast MRI is recommended for women with an approximate 20-25% or greater lifetime risk of breast cancer, including women with a strong family history of breast or ova yanna cancer or who have been treated for Hodgkin's disease. Signer Name: Simba Corral MD Signed: 10/28/2020 8:35 AM Workstation Name: [email or web address]
== END 2020-10-27 14:52 | disposition home or self-care (01) ==
LOC: SPVWC 14:51
PROVIDERS: ATTEND Surgery
DX: Z12.31 Encounter for screening mammogram for malignant neoplasm of breast (principal); N64.89 Other specified disorders of breast
CPT/HCPCS: 77063

== ENCOUNTER 2020-11-03 09:55 | Outpatient (CLI) | payer MEDICAID ==
--- NOTE | 2020-11-04 09:09 | Mammography Report ---
DIGITAL DIAGNOSTIC MAMMOGRAM WITH CAD , 11/03/2020 CLINICAL INFORMATION / INDICATION: ABNORMAL MAMMOGRAM TECHNIQUE: Digital left mammographic imaging was performed. Spot compression views were obtained. This examination was interpreted with the benefit of Computer-aided Detection analysis. COMPARISON: Multiple prior mammograms including 10/27/2020, 12/10/2019, 10/09/2019, 05/07/2018, 05/24/2017 FINDINGS: Breast Density: There are scattered areas of fibroglandular density. No dominant mass, suspicious calcifications or architectural distortion in either breast. A small are a of questionable architectural distortion persists in the upper outer quadrant at approximately 2:00 , middle depth. This area will need to be further evaluated with ultrasound. Unfortunately, no ultras ound technologist was available the time of the patient's diagnostic mammogram. Patient will probably recalled for left breast ultrasound exam. IMPRESSION: Questionable persistence of architectural distortion/focal asymmetry in the left breast a t 2:00, middle depth. The patient is being recalled for left breast ultrasound for further evaluation . Follow up recommendation: Ultrasound BI-RADS Category 0: Incomplete. Needs additional imaging evaluation and/or prior mammograms for vipul rison. A "normal" or negative report should not discourage follow up or biopsy of a clinically significant f inding. A written summary of these findings will be mailed to the patient. The patient will be entered into a mammography reporting system which will generate a reminder letter for the patient's next appointmen t at the appropriate interval. According to the [employer], yearly mammograms are recommended starting at age 40 and continuing as long as a woman is in good health. Breast MRI is recommended for women with an ilya roximately 20-25% or greater lifetime risk of breast cancer, including women with a strong family his tory of breast or ovarian cancer and women who have been treated for Hodgkin's disease. Signer Name: Kimberly Curry MD Signed: 11/04/2020 9:05 AM Workstation Name: [id number]
== END 2020-11-03 09:56 | disposition home or self-care (01) ==
LOC: SPVWC 09:55
PROVIDERS: ATTEND Surgery
DX: R92.8 Other abnormal and inconclusive findings on diagnostic imaging of breast (principal)

== ENCOUNTER 2020-11-16 12:41 | Outpatient (CLI) | payer MEDICAID ==
--- NOTE | 2020-11-16 15:18 | Ultrasound Report ---
ULTRASOUND BREAST LEFT LIMITED, 11/16/2020 CLINICAL INFORMATION / INDICATION: ABNORMAL MAMMOGRAM. Patient presents for further evaluation of a p ossible area of distortion in the left breast. TECHNIQUE: Targeted ultrasound evaluation was performed of the area of interest. COMPARISON: Prior mammograms 11/03/2020 and 10/27/2020, and breast MRI 11/13/2019 FINDINGS: Targeted ultrasound of the upper outer quadrant of the left breast reveals numerous subcentimeter ev ign cysts. There is no sonographic correlate for the possible area of distortion seen mammographicall y. IMPRESSION: 1. There is no sonographic correlate for the possible area of distortion seen mammographically. This area of distortion remains indeterminant, recommend breast MRI for further evaluation, which has been scheduled for later today. 2. Multiple benign subcentimeter cysts in the left breast. Follow up recommendation: Breast MRI BI-RADS Category 0: Incomplete. Needs additional imaging evaluation and/or prior mammograms for vipul webber. A normal or "negative" report should not preclude biopsy or follow-up of a clinically suspicious find ing. Signer Name: Linda Frazier MD Signed: 11/16/2020 3:13 PM Workstation Name: [email or web address]
--- NOTE | 2020-11-17 09:07 | Magnetic Resonance Report ---
Bilateral breast MR without and with contrast. History: History of right breast multicentric IDC, status post right breast mastectomy with implant r econstruction. Comparison: 11/16/2020, 11/03/2020, 10/27/2020, 12/10/2019, 11/13/2019 Technique: Multiplanar multisequence MR images of the breast were obtained before and after the intra venous administration of 19 mL of Clariscan contrast agent. Post processing analysis and review was p erformed on a separate computer workstation. Findings: There is scattered fibroglandular breast density. There is mild background parenchymal enhancement wi thin the left breast. RIGHT BREAST: Patient is status post right breast mastectomy with implant reconstruction. The implant appears intact. Skin thickening within the right superior anterior breast is similar to 2020 MRI and is felt to reflect treatment-related changes. No abnormal enhancement is identified within the recon structed right breast. LEFT BREAST: There is a confluent area of non masslike enhancement which is most pronounced within th e left upper inner and central breast. This may represent some degree of fat necrosis as multiple are as of oil cyst and fat necrosis have been identified previously, however the degree of enhancement ap pears to be localized in this region and does not appear to correspond with areas of fat like signal. This appears to measure 7.5 x 5 x 5 cm. Mild skin thickening within the right anterior breast is not ed and is similar to 2020 exam. No abnormal axillary or internal mammary lymph nodes. Impression: Confluent area of non masslike enhancement is most pronounced within the left upper inner and central breast. This may represent some degree of fat necrosis as multiple areas of oil cyst and fat necrosi s have been identified previously, however the degree of enhancement appears to localized in this reg ion and does not correspond with areas of fat signal. A targeted ultrasound is recommended for furthe r evaluation with ultrasound guided core biopsy if a sonographic correlate is identified. For localiz ation purposes, the left breast should be scanned focused from the 9:00 to the 11:00 position, 4 cm f rom the nipple. If no sonographic correlate is identified, an MRI guided biopsy would be recommended. BIRADS 0: Incomplete--Needs Additional Imaging Evaluation. A normal MRI does not exclude the presence of some forms of breast malignancy as literature reports s uggest that some forms of ductal carcinoma in situ or lobular carcinoma, particularly, may not be det ected on MRI. The sensitivity and specificity of MRI for cancers under 5 mm may be reduced. MRI does not replace the recommendation for annual conventional mammographic evaluation and should be used as an adjunct to mammography and physical examination as necessary. Signer Name: Brody Huerta MD Signed: 11/17/2020 9:02 AM Workstation Name: [id number]
== END 2020-11-16 12:42 | disposition home or self-care (01) ==
LOC: SPVIMAG 12:41
PROVIDERS: ATTEND Surgery
DX: N60.02 Solitary cyst of left breast (principal); Z85.3 Personal history of malignant neoplasm of breast
CPT/HCPCS: 76642; A9575; C8908; 77049

== ENCOUNTER 2020-11-30 12:12 | Outpatient (CLI) | payer BC, MEDICAID ==
--- NOTE | 2020-11-30 15:48 | Magnetic Resonance Report ---
MRI GUIDED CORE NEEDLE BIOPSY LEFT BREAST WITH CLIP PLACEMENT INDICATION: Abnormal enhancement in the left upper inner breast. COMPARISON: 11/16/2020. FINDINGS: Informed consent was obtained. The patient was placed in the prone position in the MRI. An initial sc an was confirmed confirming the proper location of the grid.. A total of 18 mL of Clariscan contrast agent was administered intravenously. A focal area of enhancement within the left breast at the 10:00 position was identified. With the aid of a separate computerized workstation, targeting coordinates were determined. The overlying skin was cleansed with Betadine and local anesthesia was obtained with a 1% lidocaine solution. A vacuum-assisted core biopsy needle was used to obtain a total of 10 core samples. Postbiopsy images confirmed biopsy changes at the targeted site. A biopsy marker was placed to ruiz the site of the biopsy. Specimen samples were placed in formalin and sent to pathology for an alysis. Patient tolerated the procedure well and no immediate complications were identified. A post procedure mammogram demonstrates biopsy marker in the expected location. IMPRESSION: Technically successful MRI guided biopsy of focal area of enhancement within the left breast at the 1 0:00 position with placement of a biopsy marker. An addendum will be added to this report once pathology results are available. Signer Name: Brody Huerta MD Signed: 11/30/2020 3:44 PM Workstation Name: [id number]
--- NOTE | 2020-11-30 15:50 | Mammography Report ---
LEFT DIAGNOSTIC MAMMOGRAM INDICATION: Status post MRI biopsy in the left breast. COMPARISON: 11/16/2020. FINDINGS: Left breast CC and LM projection mammograms were obtained. These document a biopsy marker i n the left breast at about the 10:00 position (site of recent MRI guided biopsy). The biopsy marker a ppears appropriately positioned, although a mammographic correlate was never identified. IMPRESSION: Mammographic images documenting accurate location of biopsy marker in the left breast at the 10:00 po sition. BI-RADS Category 4: Suspicious for Malignancy. Signer Name: Brody Huerta MD Signed: 11/30/2020 3:46 PM Workstation Name: [id number]
== END 2020-11-30 12:13 | disposition home or self-care (01) ==
LOC: SPVIMAG 12:12
PROVIDERS: ATTEND Surgery
DX: N63.22 Unspecified lump in the left breast, upper inner quadrant (principal); R92.8 Other abnormal and inconclusive findings on diagnostic imaging of breast; N64.89 Other specified disorders of breast; Z88.8 Allergy status to other drugs, medicaments and biological substances; I10 Essential (primary) hypertension; K21.9 Gastro-esophageal reflux disease without esophagitis; E66.9 Obesity, unspecified; Z85.3 Personal history of malignant neoplasm of breast; Z90.11 Acquired absence of right breast and nipple; Z98.890 Other specified postprocedural states
CPT/HCPCS: 19085; 77065; 88305; A4648; A9575; 88341; 88342

== ENCOUNTER 2021-05-11 09:57 | Outpatient (CLI) | payer BC, MEDICAID ==
--- NOTE | 2021-05-11 14:27 | Ultrasound Report ---
LEFT DIGITAL DIAGNOSTIC MAMMOGRAM WITH CAD , 05/11/2021 LEFT LIMITED BREAST ULTRASOUND CLINICAL INFORMATION / INDICATION: Patient has a palpable lump in the upper inner left breast. TECHNIQUE: Digital left mammographic imaging was performed. Limited ultrasound was performed. This ex amination was interpreted with the benefit of Computer-Aided Detection (CAD) analysis. COMPARISON: Prior mammogram 11/30/2020, 11/03/2020, 12/10/2019 FINDINGS: Breast Density: There are scattered areas of fibroglandular density. MAMMOGRAPHIC FINDINGS: No dominant mass, suspicious calcifications, or architectural distortion in th e left breast. The palpable lump in the upper inner left breast is not visible on mammogram. There are diffuse benign calcifications scattered throughout the left breast. There are 2 biopsy ruiz ers in the left breast from prior benign biopsies. Ultrasound will be performed for further evaluatio n of the palpable lump. ULTRASOUND FINDINGS: Targeted ultrasound evaluation was performed of the area of interest. Sonograp hic evaluation of the left breast at 11:00, 15 cm from nipple, demonstrates a round hypoechoic solid- appearing mass measuring 7 mm. This corresponds to the palpable lump . Margins are slightly irregular and there is slight posterior shadowing, and therefore further evalu ation with ultrasound-guided biopsy is recommended. IMPRESSION: 7 mm solid mass left breast 11:00 corresponding to palpable lump. Recommend ultrasound-gu ided biopsy for further evaluation. Follow up recommendation: Biopsy BI-RADS Category 4: Suspicious for Malignancy. A "normal" or negative report should not discourage follow up or biopsy of a clinically significant f inding. A written summary of these findings will be mailed to the patient. The patient will be entered into a mammography reporting system which will generate a reminder letter for the patient's next appointmen t at the appropriate interval. According to the [employer], yearly mammograms are recommended starting at age 40 and continuing as long as a woman is in good health. Breast MRI is recommended for women with an ilya roximately 20-25% or greater lifetime risk of breast cancer, including women with a strong family his tory of breast or ovarian cancer and women who have been treated for Hodgkin's disease. Signer Name: Kimberly Curry MD Signed: 05/11/2021 2:23 PM Workstation Name: [email or web address]
== END 2021-05-11 09:58 | disposition home or self-care (01) ==
LOC: SPVWC 09:57
PROVIDERS: ATTEND Surgery
DX: N63.22 Unspecified lump in the left breast, upper inner quadrant (principal)

== ENCOUNTER 2021-06-03 15:23 | Outpatient (CLI) | payer BC, MEDICAID ==
--- NOTE | 2021-06-03 16:14 | XRay Report ---
LEFT ELBOW, 3 VIEWS INDICATION / CLINICAL INFORMATION: ELBOW PAIN M25.522. COMPARISON: None available. FINDINGS: Mild degenerative changes are present throughout the elbow. No additional significant finding. No wayne dence of fracture, dislocation, or joint effusion. IMPRESSION: Mild degenerative change. No other significant finding. Signer Name: Kimberly Curry MD Signed: 06/03/2021 4:10 PM Workstation Name: [id number]
--- NOTE | 2021-06-03 16:15 | XRay Report ---
LEFT HIP 2 VIEW(S) INDICATION / CLINICAL INFORMATION: HIP PAIN M25.552 COMPARISON: None available. FINDINGS: BONES / JOINT(S): No acute fracture or subluxation. Bilateral coxa profunda. There are mild degenerat jarod changes of the bilateral hip joints. Degenerative changes of the pubic symphysis. SOFT TISSUES: No significant abnormality. ADDITIONAL FINDINGS: IUD projects over the pelvis. Signer Name: Ed Rowley MD Signed: 06/03/2021 4:11 PM Workstation Name: [id number]
== END 2021-06-03 15:24 | disposition home or self-care (01) ==
LOC: XRAY 15:23
PROVIDERS: ATTEND Internal Medicine
DX: M19.022 Primary osteoarthritis, left elbow (principal); M16.0 Bilateral primary osteoarthritis of hip; M47.898 Other spondylosis, sacral and sacrococcygeal region; Z30.430 Encounter for insertion of intrauterine contraceptive device

== ENCOUNTER 2021-06-16 08:48 | Outpatient (CLI) | payer BC, MEDICAID ==
--- NOTE | 2021-06-16 13:44 | Ultrasound Report ---
LEFT DIGITAL DIAGNOSTIC MAMMOGRAM WITH CAD CONVENTIONAL, 06/16/2021 LEFT LIMITED BREAST ULTRASOUND CLINICAL INFORMATION / INDICATION: Left ultrasound-guided biopsy planning, recent history of palpable abnormality with suspicious diagnostic ultrasound finding, history of benign MR guided left breast b iopsy 11/30/2020, personal history of right breast cancer with mastectomy TECHNIQUE: Digital left mammographic imaging was performed. Spot compression views were obtained. Anderson ited ultrasound was performed. This examination was interpreted with the benefit of Computer-Aided De tection (CAD) analysis. COMPARISON: MR breast 11/16/2020, left breast MRI guided biopsy images 320 11/09/2020, left breast ultras ound 11/16/2020, left mammogram 11/03/2020, bilateral mammography 10/27/2020, left breast ultrasound 2020 FINDINGS: Breast Density: There are scattered areas of fibroglandular density. MAMMOGRAPHIC FINDINGS: In the area marked by ultrasound as the site of the lesion in question, minima l benign-appearing nodularity is again seen with larger oil cyst posterior to the marker. Innumerable widely distributed calcifications are noted. Biopsy clips are seen. ULTRASOUND FINDINGS: Targeted ultrasound evaluation was performed of the area of interest. The area i n question on most recent ultrasound in the upper left breast at 11:00 is again seen. There are 3 floyd sely adjacent similar hypoechoic lesions in this area. The largest is again seen to measure approxima tely 8 mm which is unchanged from 11/16/2020. These 3 hypoechoic lesions without vascularity closely co rrelate with oil cysts of the same size noted on MR. There is also correlation as above with a BB mar ker and an oil cyst by mammography. No other lesions are seen. IMPRESSION: I strongly believe the area in question on the most recent ultrasound is simply an oil cy st. This is unchanged from MR and ultrasound in November and there are 3 similar lesions in this area, a ll thought to be oil cysts. I discussed this with the patient and I do not believe there is a strong need for biopsy at this time. I would simply recommend follow-up left breast ultrasound in 6 months a s a conservative precaution. Follow up recommendation: As above BI-RADS Category 2: Benign. A "normal" or negative report should not discourage follow up or biopsy of a clinically significant f inding. A written summary of these findings will be mailed to the patient. The patient will be entered into a mammography reporting system which will generate a reminder letter for the patient's next appointmen t at the appropriate interval. According to the [employer], yearly mammograms are recommended starting at age 40 and continuing as long as a woman is in good health. Breast MRI is recommended for women with an ilya roximately 20-25% or greater lifetime risk of breast cancer, including women with a strong family his tory of breast or ovarian cancer and women who have been treated for Hodgkin's disease. Signer Name: Nigel Sewell MD Signed: 06/16/2021 1:39 PM Workstation Name: [id number]
== END 2021-06-16 08:49 | disposition home or self-care (01) ==
LOC: US 08:48
PROVIDERS: ATTEND Internal Medicine Hematology & Oncology
DX: C50.411 Malignant neoplasm of upper-outer quadrant of right female breast (principal); M92.8 Other specified juvenile osteochondrosis; I89.0 Lymphedema, not elsewhere classified; R92.8 Other abnormal and inconclusive findings on diagnostic imaging of breast

== ENCOUNTER 2022-02-16 13:43 | Outpatient (CLI) | payer BC, MEDICAID ==
--- NOTE | 2022-02-16 16:39 | Ultrasound Report ---
ULTRASOUND BREAST LEFT LIMITED, 02/16/2022 CLINICAL INFORMATION / INDICATION: This is a short-term follow-up for abnormal finding in the left br east at 11:00.. TECHNIQUE: Targeted ultrasound evaluation was performed of the area of interest. COMPARISON: Prior left mammogram and ultrasound 06/16/2021 FINDINGS: Sonographic evaluation of the left breast in the 11:00 location, demonstrates several hypoechoic and anechoic masses. The appearance is unchanged from the prior ultrasound of 06/16/2021 the largest cyst is 8 mm. The appearance is consistent with multiple oil cysts. IMPRESSION: No sonographic evidence of malignancy. Stable appearance of multiple oil cysts in the 11: 00 location. Follow up recommendation: Back to schedule. BI-RADS Category 2: BENIGN. A normal or "negative" report should not preclude biopsy or follow-up of a clinically suspicious find ing. Signer Name: Kimberly Curry MD Signed: 02/16/2022 4:35 PM Workstation Name: [id number]
== END 2022-02-16 13:44 | disposition home or self-care (01) ==
LOC: MAMMO 13:43
PROVIDERS: ATTEND Internal Medicine Hematology & Oncology
DX: Z41.8 Encounter for other procedures for purposes other than remedying health state (principal); C50.411 Malignant neoplasm of upper-outer quadrant of right female breast; N60.02 Solitary cyst of left breast